=== PATIENT | male | born 1955 | race African-American/Black ===

== ENCOUNTER 2022-07-31 09:44 | Emergency (ER) | payer MEDICARE, MEDICAID ==
[~2022-07-31] VITALS: Ht 170.2 cm; Wt 87.0 kg
[~2022-07-31 09:44] MED LIST: ASPI-867 PO; BENA-8 PO; GABA-529 PO; HCTZ; METO-539 PO; NAPR375T PO; SIMV10TA97 PO
[2022-07-31] MEDS ORDERED: ACETAMINOPHEN 325MG TABLET PO STA (11:23)
[2022-07-31] MEDS ORDERED: CHLORHEXIDINE GLUCONATE 0.12% ORAL MOUTHWASH SSP SCH (11:30)
[2022-07-31] MEDS ORDERED: TETANUS, DIPHTHERIA, PERTUSSIS VAC/PF 0.5ML (>10YR OLD) IM ONE (11:30)
[2022-07-31 12:22] LABS: BASOPHILS % 0.2 % (0.0-2.0); EOSINOPHILS % 0.7 % (0.0-5.0); HEMATOCRIT. 44.9 % (42.0-52.0); HEMOGLOBIN. 15.2 g/dL (14.0-18.0); LYMPHOCYTES % 17.4 % (20.0-50.0); MEAN CORPUSCULAR HEMOGLOBIN 33.4 pg (28.0-32.0); MEAN CORPUSCULAR VOLUME 98.8 fL (80.0-94.0); MEAN PLATELET VOLUME 8.3 fl (7.4-10.4); MONOCYTES % 9.9 % (2.0-8.0); NEUTROPHILS % 71.8 % (40.0-76.0); PLATELET 233 x1000/uL (130-400); RED BLOOD CELL COUNT 4.55 mill/uL (4.7-6.1); RED CELL DISTRIBUTION WIDTH 13.6 % (11.6-14.6)
[2022-07-31 12:27] LABS: CLARITY URINE CLOUDY (CLEAR); COLOR URINE ORANGE (YELLOW); KETONES URINE TRACE (NEGATIVE); LEUKOCYTE ESTERASE URINE 1+ (NEGATIVE); NITRITE URINE POSITIVE (NEGATIVE); OCCULT BLOOD URINE NEGATIVE (NEGATIVE); PROTEIN URINE 1+ (NEGATIVE); SPECIFIC GRAVITY URINE 1.029 (1.005-1.030)
[2022-07-31 12:31] LABS: CHLORIDE 101 mEq/L (98-107)
[2022-07-31] MEDS ORDERED: CHLO473M2 MT (13:24)
[2022-07-31] MEDS ORDERED: SULF1TAB48 MT (13:24)
[2022-07-31] MEDS ORDERED: SULFAMETHOXAZOLE/TRIMETHOPRIM 800/160MG TABLET PO ONE (13:30)
[2022-07-31 13:42] VITALS: BP 146/76
== END 2022-07-31 13:59 | disposition home or self-care (01) ==
LOC: ER 09:44
DX: R55 Syncope and collapse (principal); S01.511A Laceration without foreign body of lip, initial encounter; N39.0 Urinary tract infection, site not specified; I10 Essential (primary) hypertension; R00.0 Tachycardia, unspecified; R79.89 Other specified abnormal findings of blood chemistry; I25.10 Atherosclerotic heart disease of native coronary artery without angina pectoris; M54.40 Lumbago with sciatica, unspecified side; W01.0XXA Fall on same level from slipping, tripping and stumbling without subsequent striking against object, initial encounter; Y93.89 Activity, other specified; Y92.89 Other specified places as the place of occurrence of the external cause; Z86.73 Personal history of transient ischemic attack (TIA), and cerebral infarction without residual deficits; Z79.899 Other long term (current) drug therapy
CPT/HCPCS: 36415; 70486; 71045; 80053; 81003; 83880; 84484; 85025; 90471; 90715; 93005; 99285

== ENCOUNTER 2023-07-10 11:43 | Emergency (ER) | payer MEDICARE, MEDICAID ==
[~2023-07-10] VITALS: Ht 170.2 cm; Wt 83.0 kg
[~2023-07-10 11:43] MED LIST changes: +CHLO473M2 MT; +SULF1TAB48 MT
[2023-07-10 11:44] VITALS: BP 131/68; PULSE 91; TEMP 98.8; O2SAT 97
[2023-07-10] MEDS ORDERED: AMOX1TAB16 MT (14:40)
== END 2023-07-10 15:19 | disposition home or self-care (01) ==
LOC: ER 13:11
DX: N48.89 Other specified disorders of penis (principal); I25.10 Atherosclerotic heart disease of native coronary artery without angina pectoris; E78.00 Pure hypercholesterolemia, unspecified; I10 Essential (primary) hypertension; Z86.73 Personal history of transient ischemic attack (TIA), and cerebral infarction without residual deficits
CPT/HCPCS: 99281; 99283